=== PATIENT | male | born 1930 | race American Indian/Alaskan Native ===

== ENCOUNTER 2017-03-29 10:18 | Outpatient (CLI) | payer MEDICARE ==
[2017-03-29 10:57] LABS: Hematocrit 39.7 % (35.5-45.6); Hemoglobin 13.2 gm/dl (11.8-15.2); Mean Corpuscular HGB Conc 33 % (32-34); Mean Corpuscular Hemoglobin 27 pg (28-32); Mean Corpuscular Volume 82 fl (84-94); Platelet Count 139 K/mm3 (140-440); Red Blood Count 4.86 M/mm3 (3.65-5.03); White Blood Count 5.4 K/mm3 (4.5-11.0)
[2017-03-29 11:24] LABS: Alanine Aminotransferase 11 units/L (7-56); Albumin 3.6 g/dL (3.9-5); Albumin/Globulin Ratio 1.2 %; Alkaline Phosphatase 90 units/L (35-129); Anion Gap 18 mmol/L; Blood Urea Nitrogen 12 mg/dL (9-20); Calcium 8.5 mg/dL (8.4-10.2); Carbon Dioxide 26 mmol/L (22-30); Chloride 105.9 mmol/L (98-107); Glucose 139 mg/dL (75-100); Potassium 4.7 mmol/L (3.6-5.0); Sodium 145 mmol/L (137-145); Total Protein 6.7 g/dL (6.3-8.2)
--- NOTE | 2017-03-29 11:48 | Cat Scan Report ---
Cranial CT without contrast. History: Memory loss. Findings: The posterior fossa is normal. There is moderate global atrophy. The ventricles are not effaced, and there is no shift of the midline. There are bilateral periventricular hypodensities. There is a 1 cm focal hypodensity in the left frontal lobe. Physiologic basal ganglia calcifications are noted. There are no masses or extra-axial collections. The calvarium is intact. 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 No acute findings.
== END 2017-03-29 10:19 | disposition home or self-care (01) ==
LOC: CT 10:18
PROVIDERS: ATTEND Specialist
DX: I63.9 Cerebral infarction, unspecified (principal); F03.90 Unspecified dementia, unspecified severity, without behavioral disturbance, psychotic disturbance, mood disturbance, and anxiety; R41.1 Anterograde amnesia; G31.89 Other specified degenerative diseases of nervous system; G23.8 Other specified degenerative diseases of basal ganglia; I73.89 Other specified peripheral vascular diseases
CPT/HCPCS: 36415; 70450; 80053; 82607; 82747; 84439; 84443; 85027; 86592